=== PATIENT | female | born 1945 | race Caucasian/White ===

== ENCOUNTER 2016-12-21 20:26 | Inpatient (IN) | payer OTHER, MEDICARE ==
[~2016-12-21] VITALS: Ht 165.1 cm; Wt 64.9 kg
[2016-12-21 20:26] VITALS: BP_SYST 115
[2016-12-21] MEDS ORDERED: DEXTROSE 50% JECT 50 ML DISP.SYRIN IVP ONE (20:45)
[2016-12-21] MEDS ORDERED: LACTULOSE 20 GM/30 ML UDC PO ONE (21:00)
[2016-12-21 21:13] LABS: BASOPHILS % (AUTO) 0.4 % (0.0-2.0); EOSINOPHILS # (AUTO) 0.2 K/uL (0.0-0.4); EOSINOPHILS % (AUTO) 4.9 % (0.0-4.0); HEMOGLOBIN 10.9 g/dL (12.0-16.0); LYMPHOCYTES # (AUTO) 0.8 K/uL (1.0-5.5); MEAN CORPUSCULAR HEMOGLOBIN 34 pg (27-31); MEAN CORPUSCULAR HGB CONC 32 % (32-36); MEAN CORPUSCULAR VOLUME 104 fL (79.0-98.0); MONOCYTES # (AUTO) 0.4 K/uL (0.0-1.0); MONOCYTES % (AUTO) 13.8 % (1.7-9.3); NEUTROPHILS # (AUTO) 1.8 K/uL (1.8-7.7); NEUTROPHILS % (AUTO) 56.9 % (40.0-70.0); RED BLOOD CELL COUNT(AUTO) 3.27 MIL/uL (4.2-6.2); WHITE BLOOD COUNT (AUTO) 3.2 K/uL (4.8-10.8)
[2016-12-21 21:24] LABS: PLATELET COUNT (AUTO) 65 K/uL (130-430)
[2016-12-21 21:29] LABS: ANION GAP 7 (5-15); CALCIUM 9.3 mg/dL (8.4-11.0); CHLORIDE 113 mmol/L (98-107); CREATININE 1.43 mg/dL (0.55-1.30); GLUCOSE 92 mg/dL (70-99); POTASSIUM 4.1 mmol/L (3.5-5.1); SODIUM SERUM 147 mmol/L (136-145); UREA NITROGEN, BLOOD 28 mg/dL (8-21)
[2016-12-21 21:32] LABS: INR 1.3 (0.8-1.2); PROTHROMBIN TIME 13.7 SECS (9.5-12.5)
[2016-12-21 21:33] LABS: ALANINE AMINOTRANSFERASE 38 U/L (12-78); ALBUMIN 3.1 g/dL (3.4-4.8); ASPARTATE AMINOTRANSFERASE 65 U/L (10-37); TOTAL BILIRUBIN 1.3 mg/dL (0.0-1.0)
[2016-12-21 21:40] LABS: ACETAMINOPHEN < 1 ug/mL (1-30); ALCOHOL, BLOOD < 3 mg/dL (<10)
[2016-12-21 22:01] LABS: BILIRUBIN,URINE NEGATIVE (NEGATIVE); BLOOD, URINE NEGATIVE (NEGATIVE); CLARITY/URINE CLOUDY (CLEAR); COLOR,URINE YELLOW (YELLOW); GLUCOSE,URINE NEGATIVE (NEGATIVE); KETONES,URINE NEGATIVE (NEGATIVE); LEUKOCYTE ESTERASE ,URINE 1+ (NEGATIVE); NITRITE, URINE POSITIVE (NEGATIVE); PROTEIN URINE TRACE (NEGATIVE); UROBILINOGEN,URINE 0.2 (0.2-1.0)
[2016-12-21 22:24] LABS: BARBITURATE, URINE NEGATIVE (NEG <=200); BENZODIAZEPINE, URINE NEGATIVE (NEG <=150); CANNABINOID, URINE NEGATIVE (NEG <=50); COCAINE, URINE NEGATIVE (NEG <=150); METHAMPHETAMINES SCREEN,URINE NEGATIVE (NEG <=500); OPIATE, URINE NEGATIVE (NEG <=100); PHENCYCLIDINE SCREEN,URINE NEGATIVE (NEG <=25); UR TRICYCLIC ANTIDEPRESSANTS POSITIVE (NEG <=300); URINE AMPHETAMINE NEGATIVE (NEG <=500); URINE METHADONE NEGATIVE (NEG <=200); URINE OXYCODONE SCREEN NEGATIVE (NEG <=100); URINE PROPOXYPHENE SCREEN NEGATIVE (NEG <=300)
[2016-12-21 22:28] LABS: BACTERIA,URINE MANY /HPF (None Seen); RBC,URINE 0-3 /HPF (0-3); WBC,URINE 20-50 /HPF (0-3)
[2016-12-21 22:29] LABS: MUCUS,URINE None Seen /LPF (None Seen)
[2016-12-21] MEDS ORDERED: cefTRIAXone 1 GM in D5W 50 ML IV ONE (22:45)
[2016-12-21] MEDS ORDERED: cefTRIAXone 1 GM IVPB PREMIX 50 ML IV ONE (23:10)
[2016-12-21 23:26] VITALS: BP_SYST 113
[2016-12-21] MEDS ORDERED: ACET325C PO (23:40)
[2016-12-22] MEDS ORDERED: CYAN100070 PO (01:22)
[2016-12-22] MEDS ORDERED: TIZA4TAB11 PO (01:22)
[2016-12-22] MEDS ORDERED: MULT PO (01:22)
[2016-12-22] MEDS ORDERED: RIFA550T5 PO (01:22)
[2016-12-22] MEDS ORDERED: LEVO100T9 PO (01:22)
[2016-12-22] MEDS ORDERED: ASPI-1063 PO (01:22)
[2016-12-22] MEDS ORDERED: COG1 PO (01:22)
[2016-12-22] MEDS ORDERED: PRO20 PO (01:22)
[2016-12-22] MEDS ORDERED: LACT10SO66 PO (01:22)
[2016-12-22] MEDS ORDERED: QUET50TA13 PO (01:22)
[2016-12-22] MEDS ORDERED: LIP20 PO (01:22)
[2016-12-22] MEDS ORDERED: LOSA50TA3 PO (01:22)
[2016-12-22] MEDS ORDERED: DICL50TA9 PO (01:22)
[2016-12-22] MEDS ORDERED: DOCU-144 PO (01:22)
[2016-12-22] MEDS ORDERED: OMEP20CA10 PO (01:22)
[2016-12-22 03:41] VITALS: BP_SYST 139
[2016-12-22 07:34] LABS: BASOPHILS % (AUTO) 0.4 % (0.0-2.0); EOSINOPHILS # (AUTO) 0.2 K/uL (0.0-0.4); EOSINOPHILS % (AUTO) 5.8 % (0.0-4.0); HEMATOCRIT 33.1 % (36-48); HEMOGLOBIN 10.9 g/dL (12.0-16.0); LYMPHOCYTES # (AUTO) 0.7 K/uL (1.0-5.5); LYMPHOCYTES % (AUTO) 21.7 % (20.5-51.5); MEAN CORPUSCULAR HEMOGLOBIN 34 pg (27-31); MEAN CORPUSCULAR HGB CONC 33 % (32-36); MEAN CORPUSCULAR VOLUME 103 fL (79.0-98.0); MONOCYTES # (AUTO) 0.4 K/uL (0.0-1.0); MONOCYTES % (AUTO) 14.2 % (1.7-9.3); NEUTROPHILS # (AUTO) 1.7 K/uL (1.8-7.7); NEUTROPHILS % (AUTO) 57.9 % (40.0-70.0); RED BLOOD CELL COUNT(AUTO) 3.22 MIL/uL (4.2-6.2); RED CELL DISTRIBUTION WIDTH 13.8 % (9.0-15.0)
[2016-12-22 07:56] LABS: PLATELET COUNT (AUTO) 65 K/uL (130-430)
[2016-12-22 08:11] LABS: ALANINE AMINOTRANSFERASE 37 U/L (12-78); ALBUMIN 3.1 g/dL (3.4-4.8); ANION GAP 7 (5-15); ASPARTATE AMINOTRANSFERASE 69 U/L (10-37); CALCIUM 9.5 mg/dL (8.4-11.0); CHLORIDE 113 mmol/L (98-107); CREATININE 1.49 mg/dL (0.55-1.30); GLUCOSE 82 mg/dL (70-99); POTASSIUM 4.1 mmol/L (3.5-5.1); SODIUM SERUM 148 mmol/L (136-145); TOTAL BILIRUBIN 1.3 mg/dL (0.0-1.0); UREA NITROGEN, BLOOD 24 mg/dL (8-21)
[2016-12-22] MEDS ORDERED: POTASSIUM CHLORIDE 10 MEQ TAB.PRT.SR PO PRN (08:45)
[2016-12-22] MEDS ORDERED: MORPHINE 2 MG/ML INJ. SYRINGE IVP PRN ×2 (08:45)
[2016-12-22] MEDS ORDERED: MAGNESIUM SULFATE 50 ML IV PRN (08:45)
[2016-12-22] MEDS ORDERED: LORazepam 2 MG/ML VIAL IVP PRN (08:45)
[2016-12-22] MEDS ORDERED: DOCUSATE SODIUM 100 MG CAPSULE PO PRN (08:45)
[2016-12-22] MEDS ORDERED: ONDANSETRON HCL 4 MG/2 ML VIAL IVP PRN (08:45)
[2016-12-22] MEDS ORDERED: ZOLPIDEM TARTRATE 5 MG TABLET PO PRN (08:45)
[2016-12-22] MEDS ORDERED: ACETAMINOPHEN 325 MG TABLET PO PRN (08:45)
[2016-12-22] MEDS ORDERED: tiZANidine HCL 4 MG TABLET PO SCH (08:45)
[2016-12-22] MEDS: cefTRIAXone 1 GM in D5W 50 ML IV SCH (10:15)
[2016-12-22] MEDS: RIFAXIMIN 550 MG TABLET PO SCH ×2 (11:08→22:00)
[2016-12-22] MEDS: QUEtiapine FUMARATE 25 MG TABLET PO SCH ×2 (11:08→22:00)
[2016-12-22] MEDS: FLUoxetine HCL 20 MG CAPSULE (PROzac) PO SCH (11:08)
[2016-12-22] MEDS: LACTULOSE 20 GM/30 ML UDC PO SCH ×3 (11:10→22:00)
[2016-12-22] MEDS: LOSARTAN POTASSIUM 50 MG TABLET (COZAAR) PO SCH (11:10)
[2016-12-22] MEDS: DOCUSATE SODIUM 100 MG CAPSULE PO SCH (11:11)
[2016-12-22] MEDS: LEVOTHYROXINE SODIUM 0.1 MG TABLET PO SCH (11:15)
[2016-12-22 12:44] VITALS: BP_SYST 117
[2016-12-22 16:31] VITALS: BP_SYST 114
[2016-12-22] MEDS: 0.45% NS 500 ML IV SCH (17:59)
[2016-12-22 19:55] VITALS: BP_SYST 127
[2016-12-22 23:56] VITALS: BP_SYST 138
[2016-12-23 03:46] VITALS: BP_SYST 144
[2016-12-23] MEDS: 0.45% NS 500 ML IV SCH ×2 (03:58→03:59)
[2016-12-23 06:29] LABS: BASOPHILS % (AUTO) 0.4 % (0.0-2.0); EOSINOPHILS # (AUTO) 0.2 K/uL (0.0-0.4); EOSINOPHILS % (AUTO) 5.4 % (0.0-4.0); HEMATOCRIT 32.8 % (36-48); HEMOGLOBIN 10.7 g/dL (12.0-16.0); LYMPHOCYTES # (AUTO) 0.7 K/uL (1.0-5.5); LYMPHOCYTES % (AUTO) 25.5 % (20.5-51.5); MEAN CORPUSCULAR HEMOGLOBIN 34 pg (27-31); MEAN CORPUSCULAR HGB CONC 33 % (32-36); MEAN CORPUSCULAR VOLUME 104 fL (79.0-98.0); MONOCYTES # (AUTO) 0.4 K/uL (0.0-1.0); MONOCYTES % (AUTO) 12.6 % (1.7-9.3); NEUTROPHILS # (AUTO) 1.5 K/uL (1.8-7.7); NEUTROPHILS % (AUTO) 56.1 % (40.0-70.0); RED BLOOD CELL COUNT(AUTO) 3.15 MIL/uL (4.2-6.2); RED CELL DISTRIBUTION WIDTH 13.2 % (9.0-15.0)
[2016-12-23] MEDS: LEVOTHYROXINE SODIUM 0.1 MG TABLET PO SCH (06:32)
[2016-12-23 06:48] LABS: ANION GAP 4 (5-15); CHLORIDE 111 mmol/L (98-107); CREATININE 1.24 mg/dL (0.55-1.30); GLUCOSE 89 mg/dL (70-99); POTASSIUM 3.6 mmol/L (3.5-5.1); SODIUM SERUM 144 mmol/L (136-145); UREA NITROGEN, BLOOD 19 mg/dL (8-21)
[2016-12-23 07:52] LABS: WHITE BLOOD COUNT (AUTO) 2.8 K/uL (4.8-10.8)
[2016-12-23 07:53] VITALS: BP_SYST 136
[2016-12-23 07:53] LABS: PLATELET COUNT (AUTO) 61 K/uL (130-430)
[2016-12-23] MEDS: LACTULOSE 20 GM/30 ML UDC PO SCH ×3 (08:40→21:28)
[2016-12-23] MEDS: FLUoxetine HCL 20 MG CAPSULE (PROzac) PO SCH (08:41)
[2016-12-23] MEDS: DOCUSATE SODIUM 100 MG CAPSULE PO SCH (08:41)
[2016-12-23] MEDS: QUEtiapine FUMARATE 25 MG TABLET PO SCH ×2 (08:41→21:28)
[2016-12-23] MEDS: RIFAXIMIN 550 MG TABLET PO SCH ×2 (08:41→21:28)
[2016-12-23] MEDS: LOSARTAN POTASSIUM 50 MG TABLET (COZAAR) PO SCH (08:42)
[2016-12-23] MEDS: cefTRIAXone 1 GM in D5W 50 ML IV SCH (08:43)
[2016-12-23] MEDS: 0.45% NS 1,000 ML IV SCH (10:25)
[2016-12-23] MEDS: INSULIN REGULAR, HUMAN 100 UNITS/ML, 10 ML VIAL (novoLIN R) SUBCUT PRN ×2 (11:32→16:42)
[2016-12-23 12:52] VITALS: BP_SYST 117
[2016-12-23 16:21] VITALS: BP_SYST 153
[2016-12-23 20:10] VITALS: BP_SYST 136
[2016-12-23 23:14] VITALS: BP_SYST 116
[2016-12-24] MEDS: 0.45% NS 1,000 ML IV SCH (02:00)
[2016-12-24 02:57] VITALS: BP_SYST 124
[2016-12-24] MEDS: LEVOTHYROXINE SODIUM 0.1 MG TABLET PO SCH (06:34)
[2016-12-24 07:30] LABS: HEMATOCRIT 31.5 % (36-48); HEMOGLOBIN 10.1 g/dL (12.0-16.0); MEAN CORPUSCULAR HEMOGLOBIN 33 pg (27-31); MEAN CORPUSCULAR HGB CONC 32 % (32-36); MEAN CORPUSCULAR VOLUME 104 fL (79.0-98.0); PLATELET COUNT (AUTO) 61 K/uL (130-430); RED BLOOD CELL COUNT(AUTO) 3.03 MIL/uL (4.2-6.2); RED CELL DISTRIBUTION WIDTH 13.4 % (9.0-15.0)
[2016-12-24 07:56] LABS: WHITE BLOOD COUNT (AUTO) 2.6 K/uL (4.8-10.8)
[2016-12-24 08:02] LABS: ANION GAP 7 (5-15); CALCIUM 8.5 mg/dL (8.4-11.0); CHLORIDE 108 mmol/L (98-107); CREATININE 1.03 mg/dL (0.55-1.30); GLUCOSE 98 mg/dL (70-99); POTASSIUM 3.4 mmol/L (3.5-5.1); SODIUM SERUM 140 mmol/L (136-145); UREA NITROGEN, BLOOD 12 mg/dL (8-21)
[2016-12-24 08:05] VITALS: BP_SYST 100
[2016-12-24] MEDS: LOSARTAN POTASSIUM 50 MG TABLET (COZAAR) PO SCH (09:00)
[2016-12-24] MEDS: cefTRIAXone 1 GM in D5W 50 ML IV SCH (09:38)
[2016-12-24] MEDS: DOCUSATE SODIUM 100 MG CAPSULE PO SCH (09:39)
[2016-12-24] MEDS: RIFAXIMIN 550 MG TABLET PO SCH (09:39)
[2016-12-24] MEDS: QUEtiapine FUMARATE 25 MG TABLET PO SCH (09:40)
[2016-12-24] MEDS: LACTULOSE 20 GM/30 ML UDC PO SCH ×2 (09:41→15:00)
[2016-12-24] MEDS: FLUoxetine HCL 20 MG CAPSULE (PROzac) PO SCH (09:41)
[2016-12-24 09:55] LABS: ATYPICAL LYMPHOCYTES % 0 % (0-0); BAND % (MANUAL) 0 % (0-6); BASOPHILS % (MANUAL) 0 % (0-2); EOSINOPHILS % (MANUAL) 6 % (0-7); LYMPHOCYTES % (MANUAL) 25 % (20-46); MONOCYTES % (MANUAL) 13 % (0-11)
[2016-12-24] MEDS ORDERED: NITR-85 PO (11:26)
[2016-12-24 12:46] VITALS: BP_SYST 133
[2016-12-24 16:15] VITALS: BP_SYST 123
[2016-12-24 16:32] VITALS: BP_SYST 112
== END 2016-12-24 17:37 | DRG 441 ==
LOC: SED 20:26 → SMU 22:57
PROVIDERS: ADMIT General Practice; ATTEND General Practice
DX: K72.90 Hepatic failure, unspecified without coma (principal); N17.0 Acute kidney failure with tubular necrosis; E87.0 Hyperosmolality and hypernatremia; E44.0 Moderate protein-calorie malnutrition; D61.818 Other pancytopenia; D68.9 Coagulation defect, unspecified; B17.10 Acute hepatitis C without hepatic coma; N39.0 Urinary tract infection, site not specified; K70.30 Alcoholic cirrhosis of liver without ascites; F41.9 Anxiety disorder, unspecified; D73.1 Hypersplenism; E87.6 Hypokalemia; B18.2 Chronic viral hepatitis C; I25.10 Atherosclerotic heart disease of native coronary artery without angina pectoris; I10 Essential (primary) hypertension; K21.9 Gastro-esophageal reflux disease without esophagitis; F32.9 Major depressive disorder, single episode, unspecified; E03.9 Hypothyroidism, unspecified; F29 Unspecified psychosis not due to a substance or known physiological condition; Z95.5 Presence of coronary angioplasty implant and graft; Z68.23 Body mass index [BMI] 23.0-23.9, adult; Z85.05 Personal history of malignant neoplasm of liver; Z95.1 Presence of aortocoronary bypass graft
CPT/HCPCS: 36415; 70450-TC; 71010; 76700-TC; 80048; 80053; 80307; 81000-TC; 82140-TC; 82550-TC; 82962; 83605; 83735-TC; 84484; 85007; 85025; 85027; 85610-TC; 85730-TC; 87040-TC; 87081; 87086; 87186-TC; 93005; 96365; 96375; 97110-GP; 97116-GP; 97530-GP; 99285; G0480; G0481; G0482; J0696; J1815; J7050; J7060